=== PATIENT | male | born 1990 | race Caucasian/White ===

== ENCOUNTER 2025-01-30 10:16 | Outpatient (CLI) | payer BC, SELFPAY ==
--- OUTSIDE RECORDS SUMMARY | 2021-02-19 10:00 | XMS_ITS | Encounter Summary ---
[facility] Address [address] [id number] Care Team Providers Care Dining Room Cashier Name Role Phone July Frey DO Primary Care Provider Reason for Referral * Hospital - Outpatient (Routine) - Closed Specialty Diagnoses / Procedures Referred By Kaylen conway Referred To Contact Sleep Medicine Diagnoses Snoring Obstructive sleep apnea, adult Procedures Home Sleep Study Cory Tovar MD [address] [id number] Phone: tel: fax: [facility] [address] [address] Phone: tel: fax: Referral ID Status Reason Start Date Expiration Date Visits Re quested Visits Authorized [id number] Closed 01/30/2021 03/30/2021 1 1 Reason for Visit * Hospital - Outpatient (Routine) - Closed Specialty Diagnoses / Procedures Referred By Kaylen conway Referred To Contact Sleep Medicine Diagnoses Snoring Obstructive sleep apnea, adult Procedures Home Sleep Study Cory Tovar MD [address] [address], [address] [address] Phone: tel: fax: [facility] [address] [place] [address] Phone: tel: fax: Referral ID Status Reason Start Date Expiration Date Visits Re quested Visits Authorized [id number] Closed 01/30/2021 03/30/2021 1 1 Encounter Details Date Type Department Care Team (Latest Contact Info) Description 02/19/2021 10:00 AM EST Hospital Encounter [facility] [address] [facility] [address] [place] [id number] Cory Tovar MD [address] [facility] 1, [address] [place] [address] Snoring; Obstructive sleep apnea, adult Social History Tobacco Use Types Packs/Day Years Used Date Smoking Tobacco: Never Smokeless Tobacco: Never Alcohol Use Standard Drinks/Week Comments Yes 2 (1 standard drink = 0.6 oz pur e alcohol) social PHQ-2 Answer Date Recorded Retired PHQ-9: Brief Depression Severity Measure Score 8 07/14/2022 PHQ-2 Answer Date Recorded Patient Health Questionnaire-2 Score 0 08/01/2024 Sex and Gender Information Value Date Recorded Sex Assigned at Male 07/31/2024 11:45 AM EDT Legal Sex Male 12:01 PM EDT Gender Identity Not on file Sexual Orientation Not on file documented as of this encounter Last Filed Vital Signs Vital Sign Reading Time Taken Comments Blood Pressure - - Pulse - - Temperature - - Respiratory Rate - - Oxygen Saturation - - Inhaled Oxygen Concentration - - Weight 105 kg (231 lb) 02/19/2021 11:04 AM EST Height 182.9 cm (6') 02/19/2021 11:04 AM EST Body Mass Index 31.33 02/19/2021 11:04 AM EST documented in this encounter Functional Status documented as of this encounter Plan of Treatment Upcoming Encounters Date Type Department Care Team (Late st Contact Info) Description 02/06/2025 3:45 PM EST Office Visit [facility] [address] [place] [address] July Frey DO [address] [place] [address] 08/05/2025 4:00 PM EDT Office Visit [facility] [address], [place] [phone] July Frey DO [address], [place] [id number] documented as of this encounter Procedures Procedure Name Priority Date/Time Associated Diagnosis Comments WATCHPAT Routine 02/22/2021 5:51 AM EST Snoring Obstructive sleep apnea, adult documented in this encounter Results * WATCHPAT (02/22/2021 5:51 AM EST) Narrative Cory Tovar MD - 03/10/2021 9:16 AM EST Home sleep apnea test with WatchPat device report Patient Name: Alfredo Corrigan Interpreting Physician: Cory Tovar MD Date of : 1990 Referring Physician: Dr. Frey Primary Care Physician: July Frey DO Date of Study: 02/21/2021 Clinical Information Patient is a 30 y.o. male. Is seen for snoring and nonrestorative's. He has had central apneas noted in the past year. He awakens frequently at night. He has a morning headache 4 days/week. He has had hypertension noted in the past months. Blood pressure is 153/76 pulse 88 respirations 18 body mass index 31.36 Patient presents with an [place] Sleepiness Scale of 16/24 Methods used for Home Sleep Testing: Patient had a home sleep test using an WatchPat device that uses peripheral arterial tone to measure arterial volume changes at the fingertip showing sympathetic nervous system activation. Sleep stages are determined based on signal characteristics and built in actigraphy can help determine sleep/wake periods. Both signal attenuation and pulse rate determine arousals correlating with respiratory events, and the pulse oximeter sensor determines blood oxygen saturations. Snoring and body position is determined through an intergrated sensor measuring decibals and actigraphy. Raw study data was reviewed on an epoch by hypopneas Home sleep apnea test results Diagnostic Summary TOTAL RECORDING TIME: Total Recording Time (TIB) (min): 440 minutes TOTAL SLEEP TIME: Total Sleep Time (TST)(min): 339 minutes SLEEP LATENCY: Sleep Latency (min): 36 STAGE R. LATENCY: Stage R Latency (min): 58 min SLEEP EFFICIENCY: Sleep Efficiency (%): 77.12 % STAGE R % TST 12.2 He has minimally decreased sleep efficiency and decrease REM sleep Respiratory Data pAHI: AHI: 12.4 pRDI: RDI (if applicable): 19.9 This is consistent with mild obstructive sleep apnea. He had scattered snoring. Cardiac AVG HR DURING SLEEP Avg HR During Sleep: 69 bpm HIGHEST HR DURING SLEEP Highest HR During Sleep: 122 bpm Oximetry MIN SPO2 Min SpO2: 85 % O2 SATURATION, MEAN VALUE Arterial Oxygen Saturation, Mean Value (%): 94 % Diagnostic Respiratory Index Summary by Body Position He showed significant positional effect with a severe index in the supine position Supine pAHI, TOTAL AHI, TOTAL : 42.4 pRDI, TOTAL RDI, TOTAL : 43.3 TST (min) TST (MIN) : 69.5 Duration (Min) No data recorded Left pAHI, TOTAL AHI, TOTAL : 5.1 pRDI, TOTAL RDI, TOTAL : 16 TST (min) TST (min) : 166 Duration (Min) No data recorded Right pAHI, TOTAL AHI, TOTAL : 4 pRDI, TOTAL RDI, TOTAL: 10.4 TST (min) TST (min) : 104.2 Duration (Min) No data recorded Prone AHI, TOTAL No data recorded RDI, TOTAL No data recorded TST (min) No data recorded Duration (Min) No data recorded Impression: mild obstructive apnea, significant positional effect, decreased REM sleep and Mild decreased sleep efficiency Plan: would consider trial of CPAP such as AutoSet with an 8 cm minimum an 18 cm maximum , would encourage weight loss , would encourage the patient to avoid alcohol and sedatives close to bedtime , would encourage lateral position sleep , could consider oral appliance therapy and could consider surgical options Follow-up: He is to follow-up in sleep clinic and follow-up with Dr. Tk Tovar MD [facility] Sleep Medicine Pulmonary and Critical Care Medicine Electronically signed by: Cory Tovar MD 03/10/21 09:10 EST Cory Tovar MD [facility]EP [facility]ENTER ORDERABLES Final Re sult documented in this encounter Visit Diagnoses Diagnosis Snoring Other dyspnea and respiratory abnormality Obstructive sleep apnea, adult documented in this encounter Care Teams Dining Room Cashier Relationship Specialty Start Date End Date July Frey DO [address] [place] [address] PCP - General Family Medicine 11/14/20 documented as of this encounter
[2025-01-30 20:11] LABS: Coronavirus 19, PCR Not Detected (NotDetected); Influenza A, PCR Not Detected (NotDetected); Influenza B, PCR Not Detected (NotDetected)
--- OUTSIDE RECORDS SUMMARY | 2025-02-04 10:55 | XMS_ITS | Encounter Summary ---
Author Organization [facility] Address [address] [place] [address] Phone [email or web address] Care Team Providers Care Embossing Machine Operator Helper Name Role Phone Unavailable Primary Care Provider Unavailabl e Encounter Details Date Type Department Care Team (Late st Contact Info) Description 01/10/[address] [place] [address] Paola Lacey, RN [address] [place] [address] Social History Tobacco Use Types Packs/Day Years Used Date Smoking Tobacco: Never Smokeless Tobacco: Never Intimate Partner Violence Answer Date R ecorded Insults You Not on file 06/15/2020 Threatens You Not on file 06/15/2020 Screams at You Not on file 06/15/2020 Physically Hurt Not on file 06/15/2020 Intimate Partner Violence Score Not on file 06/15/2020 Depression Answer Date Recorded PHQ Total Score 0 03/10/2023 Stress Answer Date Recorded Stress in your Life Not on file 01/08/2024 Dealing with Stress 3 01/08/2024 Sex and Gender Information Value Date Recorded Sex Assigned at Not on file Legal Sex Male 8:38 AM CDT Gender Identity Not on file Sexual Orientation Not on file documented as of this encounter Progress Notes * Paola Lacey RN - 01/10/2025 12:17 PM EST Images from the original note were not included. See below e-mail with approval for specialist visit from WC adjustor, referral already closed sinceappointment was made with claim# from [facility]SI report. NOAM RN Work comp claim #: [id number] Thanks! Kalpana Soler Insulator Tester P: [phone] F: [phone] E: [email or web address] A: [address] [place] [address] RIMENTAL PREFLIGHT MECHANIC documented in this encounter Plan of Treatment Upcoming Encounters Date Type Department Care Team (Late st Contact Info) Description 02/04/2025 11:30 AM EST Occ Office Visit [facility] [address] [place] [address] Sherrie Bass, ILA [address] [place] [phone] 02/05/2025 1:00 PM EST Occ Treatment [facility] [address] [place] [address] Sheila Benitez, OT [address] [place] [address] 02/07/2025 1:00 PM EST Occ Treatment [facility] [address] [place] [address] Sheila Benitez, OT [address] [place] [address] documented as of this encounter Visit Diagnoses Not on filedocumented in this encounter
--- OUTSIDE RECORDS SUMMARY | 2025-02-04 10:55 | XMS_ITS | Clinical Summary ---
[facility] [address] [place] [address] Care Team Providers Care Food And Drug Inspector Name Role Phone July Frey Primary Care Provider [phone] Allergies No known active allergies Medications Testosterone Compounding Kit 20 % cream Apply 1 Application topically to the appropriate area as directed Daily. 4 Active tadalafil (CIALIS) 5 MG tablet Take 1 tablet by mouth Daily As Needed for Erectile Dysfunction. Active valACYclovir (VALTREX) 500 MG tablet Take 1 tablet by mouth Daily. 90 tablet 5 Active losartan-hydroch lorothiazide (HYZAAR) 100-25 MG per tabletIndication s:Essential hypertension Take 1 tablet by mouth Daily. 90 tablet 3 5 Active omeprazole (priLOSEC) 40 MG capsuleIndicatio ns:Gastroesophag eal reflux disease without esophagitis Take 1 capsule by mouth 2 (Two) Times a Day Before Meals. Take a half hour before breakfast 180 capsule 1 5 Active Active Problems Problem Noted Date Diagnosed Date Obstructive sleep apnea, adult 02/23/2021 Low testosterone 05/30/2020 Assessment & Plan (05/30/2020 6:27 PM EDT): Will obtain second testosterone reading. Advised that insurance typically requires 2 readings of low testosterone before approving therapy. We will plan to do testosterone injections. Patient wishes to do injections at home. Elevated hemoglobin 05/30/2020 Assessment & Plan (05/30/2020 6:28 PM EDT): Normalized. Further work-up to rule out various causes of polycythemia have been all normal as well. Urinary tract infection without hematuria 2020 Assessment & Plan (04/15/2020 6:34 AM EST): Trace leukocytes on UA. Will go ahead and treat with doxycycline for suspected UTI. Will send urine for culture. Urine also being tested for STDs. Essential hypertension 04/14/2020 Assessment & Plan (05/30/2020 6:27 PM EDT): Controlled on current medication. Patient has been encouraged to check his blood pressure couple times a week to ensure that it is not decreasing too low. Advised with continued weight loss, he may be able to come off of lisinopril. Assessment & Plan (04/15/2020 6:33 AM EST): BP remains elevated today. Will start losartan. Discussed potential side effects of the medication. Dysuria 04/14/2020 Elevated blood pressure, situational 01/25/2020 Assessment & Plan (01/25/2020 6:13 PM EST): Likely secondary to increased anxiety. Will avoid placing patient on antihypertensives at this time. Psychophysiological insomnia 07/24/2019 Assessment & Plan (07/24/2019 4:19 PM EDT): Secondary to uncontrolled anxiety and depression. Will start trazodone prn. Advised this is not something he will routinely have to take. Seasonal allergic rhinitis due to pollen 019 Assessment & Plan (08/18/2018 5:45 PM EDT): Improved. Continue Xyzal. Assessment & Plan (07/11/2018 1:18 PM EDT): Uncontrolled. Will start xyzal. Anxiety and depression 07/11/2018 Assessment & Plan (07/24/2019 4:19 PM EDT): Uncontrolled. Situational. Will start back on wellbutrin since the patient has done well with it before. Advised it may take a few weeks to take affect. He will also start counseling, which he has already set up. Assessment & Plan (01/10/2019 1:36 PM EST): Uncontrolled. Patient is being started back on Wellbutrin. Paperwork is also been filled [place] for [place] for work. Assessment & Plan (08/18/2018 5:46 PM EDT): Uncontrolled. Will start wellbutrin due to sexual side effects with zoloft. Advised of potential side effects. Assessment & Plan (07/11/2018 1:18 PM EDT): Uncontrolled. Continue counseling. Will start zoloft. Advised of potential side effects. Intermittent FMLA papers have been filled out today. Gastroesophageal reflux disease 07/11/2018 Assessment & Plan (08/18/2018 5:45 PM EDT): Improved without medication. Patient states will do H.pylori breath test today. Assessment & Plan (07/11/2018 1:17 PM EDT): Improved with prilosec. However, there is concern for possible H. Pylori. Patient to avoid acid reducers for 2 weeks and then do breath test. Resolved Problems Problem Noted Date Diagnosed Date Resolved Date Penile rash 03/12/2020 04/15/2020 Assessment & Plan (03/12/2020 3:49 PM EST): Unresolved with this last round of Diflucan. Patient is not having any discomfort from the rash currently, but it is still present. Discussed that the rash may not be fungal in nature. Will refer to dermatology for further evaluation and treatment. Penile lesion 01/25/2020 04/15/2020 Assessment & Plan (01/25/2020 6:12 PM EST): Highly suspected to be genital herpes outbreak. Patient is being treated with Valtrex. Penile swab was done in office today and sent for further STD testing. Patient highly encouraged to wear condoms to prevent further STDs. Localized abrasion of teeth 07/25/2013 04/15/2020 Overview (01/10/2019): Overview: Other sprain and strain of wrist 07/24/2013 04/15/2020 Overview (01/10/2019): Overview: Encounters Date Type Department Care Team Description 11/05/2024 Results Follow-Up [facility] [address] [place], [place] [address] July Frey DO from Last 3 Months Immunizations Immunization Administration Dates Next Due COVID-19 (MODERNA) 1st,2nd,3 rd Dose Monovalent 12/30/2020 Hep B, Adolescent or Pediatric 10/27/2000,2000,04/27/2000 Hpv9 04/14/2020 MMR 04/27/2000 Td (TDVAX) 12/11/2003 Tdap 05/09/2017,07/24/2013 Family History Medical History Relation Name Comments Hypertension Brother Glendale Corrigan Cancer Father [facility] lung and esopha geal Cancer Maternal Grandfather Darlene Peng mets Cancer Maternal Grandmother Caridad Peng lung Sleep apnea Mother [facility] Diabetes Paternal Grandfather [facility] Relation Name Status Comments Brother Gagandeep Corrigan Alive Father [facility] Maternal Grandfather Darlene Peng Maternal Grandmother Caridad Peng Mother [facility] Alive Paternal Grandfather [facility] Social History Tobacco Use Types Packs/Day Years Used Date Smoking Tobacco: Never Smokeless Tobacco: Never Tobacco Cessation:Counseling Given: Not Answered Alcohol Use Standard Drinks/Week Comments Yes 2 [...] on file Sexual Orientation Not on file Last Filed Vital Signs Vital Sign Reading Time Taken Comments Blood Pressure 138/64 08/01/2024 3:58 PM EDT Pulse 62 08/01/2024 3:58 PM EDT Temperature 36.4 C (97.5 F) 08/01/2024 3:58 PM EDT Respiratory Rate 16 08/01/2024 3:58 PM EDT Oxygen Saturation 99% 08/01/2024 3:58 PM EDT Inhaled Oxygen Concentration - - Weight 106 kg (234 lb 3.2 oz) 08/01/2024 3:58 PM EDT Height 185.4 cm (6' 1 ) 08/01/2024 3:58 PM EDT Body Mass Index 30.9 08/01/2024 3:58 PM EDT Plan of Treatment Upcoming Encounters Date Type Department Care Team (Late st Contact Info) Description 02/06/2025 3:45 PM EST Office Visit [facility] [address] [place] [phone] July Frey DO [address] [place] [address] 08/05/2025 4:00 PM EDT Office Visit [facility] [address] [place] [address] July Frey DO [address] [place] [address] Health Maintenance Due Date Last Done Comments INFLUENZA VACCINE 10/05/2024 01/10/2019 (Declined) ANNUAL PHYSICAL 08/01/2025 08/01/2024 TDAP/TD VACCINES (4 - Td or Tdap) 05/10/2027 05/09/2017, 07/24/2013, 12/11/2003 HEPATITIS C SCREENING Completed 12/06/2019 Pneumococcal Vaccine 0-49 Aged Out No longer eligible based on patient's age to complete this topic Procedures Procedure Name Priority Date/Time Associated Diagnosis Comments SCANNED - LABS 01/15/2025 HEPATITIS C ANTIBODY Routine 12/06/2019 4:19 PM EDT Potential exposure to STD from Last 3 Months or Most Recently Relevant to Health Maintenance Results * LABS SCANNED (01/15/2025) July Frey DO LAB BLOOD ORDERABLES Final Result * Hepatitis C Antibody (12/06/2019 4:19 PM EDT) Hep C Virus Ab <0.1 0.0 - 0.9 s/co ratio [facility] Comment: Negative: < 0.8 Indeterminate: 0.8 - 0.9 Positive: > 0.9 The CDC recommends that a positive HCV antibody result be followed up with a HCV Nucleic Acid Amplification test (008887). Blood 12/06/2019 4:19 PM EDT 12/06/2019 Narrative [facility] (AMBULATORY) - 12/07/2019 7:08 AM EDT Performed at: [address] [place] [id number] Train Inspector: Rajesh Reddy PhD, Phone: [phone] Patient Fasting: N Saima Shipley DO LAB BLOOD ORDERABLES Fin al Result [facility] ([facility]UL[facility]) [address] [place] [address], [facility] [address] [place] [address], [place] [phone] from Last 3 Months or Most Recently Relevant to Health Maintenance Insurance [employer] [facility] PPO Care Teams Food And Drug Inspector Relationship Specialty Start Date End Date July Frey DO [address] [place] [address] PCP - General Family Medicine 11/14/20
--- OUTSIDE RECORDS SUMMARY | 2025-02-04 10:55 | XMS_ITS | Clinical Summary ---
Author Organization Healthcare Address [address] [place] [address] Care Team Providers Care Coal Weigher Name Role Phone July Frey DO Primary Care Provider [phone] Allergies No known active allergies Medications omeprazole (PriLOSEC) [address] capsule TAKE 1 CAPSULE BY MOUTH TWICE DAILY BEFORE MEALS, TAKE A HALF HOUR BEFORE BREAKFAST 5 Active losartan-hydroCH LOROthiazide (Hyzaar) 100-25 MG tablet Take 1 tablet by mouth daily. 5 Active famotidine (Pepcid) 20 MG tablet TAKE 1 TABLET BY MOUTH TWICE DAILY NEEDED FOR HEART Active Cetirizine HCl 10 MG capsule 2 Active TESTOSTERONE COMPOUNDING KIT TD 4 Active Active Problems No known active problems Family History Medical History Relation Name Comments Diabetes Brother Mike corrigan Cancer Father Gagandeep corrigan Conversions - Other Mother Healthy adult Relation Name Status Comments Brother Mike corrigan Father Gagandeep [place] Mother Social History Tobacco Use Types Packs/Day Years Used Date Smoking Tobacco: Never Smokeless Tobacco: Never Tobacco Cessation:Counseling Given: Not Answered Alcohol Use Standard Drinks/Week Comments Yes 5 (1 standard drink = 0.6 oz pure alcohol) Alcoholic Drinks/day: Social alcohol use Sex and Gender Information Value Date Recorded Sex Assigned at Male 06/24/2023 7:36 AM EDT Legal Sex Male 6:12 PM EDT Gender Identity Not on file Sexual Orientation Not on file Last Filed Vital Signs Vital Sign Reading Time Taken Comments Blood Pressure 130/82 11/01/2024 3:34 PM EDT Pulse 81 11/01/2024 3:34 PM EDT Temperature 36.7 C (98 F) 11/01/2024 3:34 PM EDT Respiratory Rate - - Oxygen Saturation 98% 11/01/2024 3:34 PM EDT Inhaled Oxygen Concentration - - Weight 102 kg (225 lb) 11/01/2024 3:34 PM EDT Height 185.4 cm (6' 1 ) 11/01/2024 3:34 PM EDT Body Mass Index 29.69 11/01/2024 3:34 PM EDT Plan of Treatment Upcoming Encounters Date Type Department Care Team (Late st Contact Info) Description 03/21/2025 4:00 PM EST Office Visit Professional Our Security Team [facility] [address], [address] [place] [address] Health Maintenance Due Date Last Done Comments Dental Oral Exam 1989 Dental Prophylaxis 1989 Dental X-Ray: Bitewings 1989 Dental X-Ray: Full Mouth 1989 [facility]-Depression Screening 1989 [facility]-HIV Screening 1989 [facility]-/Child/Adol SDOH Screenings 1989 [facility]-Varicella Vaccines (1 of 2 - 13+ 2-dose series) 2002 [facility]- SDOH Screenings 06/19/2007 [facility]-Adult SDOH Screenings 06/19/2007 HPV Vaccines (2 - 3-dose SCDM series) 05/12/2020 04/14/2020 [id number] Vaccine (2 - 2024- season) 2024 12/30/2020 [facility]-Influenza Vaccine (#1) 2024 [facility]-DTaP,Tdap,and Td Vaccines (4 - Td or Tdap) 05/10/2027 05/09/2017, 07/24/2013, 12/11/2003 [facility]-Zoster Vaccines (1 of 2) 06/19/2039 [facility]-Hepatitis B Vaccines Completed 001, 05/30/2000, 04/27/2000 [facility]-Hepatitis C Screening Completed 12/06/2019 [facility]-Obesity Intervention Completed 025, 11/16/2023, 10/26/2023, Additional history exists [facility]-HIB Vaccines Aged Out No longer e ligible based on patient's age to complete this topic [facility]-Hepatitis A Vaccines Aged Out No longer eligible based on patient's age to complete this topic [facility]-IPV Vaccines Aged Out No longer e ligible based on patient's age to complete this topic [facility]-Pneumococcal Vaccine: Pediatrics (0 to 5 Years) and At-Risk Patients (6 to 49 Years) Aged Out No longer eligible based on patient's age to complete this topic [facility]-Rotavirus Vaccines Aged Out No lo nger eligible based on patient's age to complete this topic Insurance [employer] Care Teams Coal Weigher Relationship Specialty Start Date End Date July Frey DO PCP - General 10/26/23
--- OUTSIDE RECORDS SUMMARY | 2025-02-04 10:55 | XMS_ITS | Encounter Summary ---
Author Organization [facility] Address [address] [place] [address] Care Team Providers Care Glue Clamp Operator Name Role Phone July Frey DO Primary Care Provider [phone] Reason for Referral * Consultation (Routine) - Closed Specialty Diagnoses / Procedures Referred By Kaylen conway Referred To Contact Nephrology Diagnoses Decreased renal function Procedures WI OFFICE/OUTPATIENT NEW MODERATE MDM 45 MINUTES July Frey DO [address] [place] [address] Phone: tel: fax: Patrizia Borrego MD [facility] [place] [address] Phone: tel: fax: Referral ID Status Reason Start Date Expiration Date V isits Requested Visits Authorized [id number] Closed Specialty Services Required 10/02/2024 01/01/2026 1 1 * Diagnostic Imaging (Routine) - Closed Specialty Diagnoses / Procedures Referred By Kaylen conway Referred To Contact Radiology Diagnoses Decreased renal function Procedures US Renal Bilateral July Frey DO [address] [place] [address] Phone: tel: fax: [facility] [address] [place] [address] Phone: tel: Referral ID Status Reason Start Date Expiration Date Visits Re quested Visits Authorized [id number] Closed 10/02/2024 01/01/2026 1 1 Encounter Details Date Type Department Care Team (Late st Contact Info) Description 10/02/2024 Results Follow-Up [facility] [address] [place] [address] July Frey DO [address] [place] [address] Social History Tobacco Use Types Packs/Day Years [...] on file documented as of this encounter Plan of Treatment Upcoming Encounters Date Type Department Care Team (Late st Contact Info) Description 02/06/2025 3:45 PM EST Office Visit [facility] [address] [place] [address] July Frey DO [address] [place] [address] 08/05/2025 4:00 PM EDT Office Visit [facility] [address] [place] [address] July Frey DO [address] [place] [id number] Scheduled Referrals Name Type Priority Associated Diagnoses Order Schedule Ambulatory Referral to Nephrology Outpatient Referral Routine Decreased renal function Ordered: 10/02/2024 documented as of this encounter Results * US Renal Bilateral (10/29/2024 3:27 PM EDT) Anatomical Region Laterality Modality Body, Abdomen Ultrasound 11/01/2024 9:22 PM EDT Impressions 11/01/2024 9:23 PM EDT Impression: Unremarkable renal ultrasound. Electronically Signed: Paola De La Vega MD 11/01/2024 9:23 PM EDT Workstation ID: [id number] Narrative 11/01/2024 9:23 PM EDT US RENAL BILATERAL Date of Exam: 10/29/2024 3:06 PM EDT Indication: decreased renal function. Comparison: No comparisons available. Technique: Grayscale and color Doppler ultrasound evaluation of the kidneys and urinary bladder was performed. Findings: RIGHT kidney measures 9.6 x 5.9 x 5.1 cm. Kidney echogenicity, size, and vascularity appear within normal limits. There is no solid kidney mass. No echogenic shadowing stone. No hydronephrosis. LEFT kidney measures 10.1 x 6.4 x 6 cm. Kidney echogenicity, size, and vascularity appear within normal limits. There is no solid kidney mass. No echogenic shadowing stone. No hydronephrosis. Limited visualization of the urinary bladder is unremarkable. Procedure Note Paola De La Vega MD - 11/01/2024 US RENAL BILATERAL Date of Exam: 10/29/2024 3:06 PM EDT Indication: decreased renal function. Comparison: No comparisons available. Technique: Grayscale and color Doppler ultrasound evaluation of thekidneys and urinary bladder was performed. Findings: RIGHT kidney measures 9.6 x 5.9 x 5.1 cm. Kidney echogenicity, size, andvascularity appear within normal limits. There is no solid kidney mass.No echogenic shadowing stone. No hydronephrosis. LEFT kidney measures 10.1 x 6.4 x 6 cm. Kidney echogenicity, size, andvascularity appear within normal limits. There is no solid kidney mass.No echogenic shadowing stone. No hydronephrosis. Limited visualization of the urinary bladder is unremarkable. IMPRESSION: Impression: Unremarkable renal ultrasound. Electronically Signed: Paola De La Vega MD 11/01/2024 9:23 PM EDT Workstation ID: [id number] us July Frey DO IMG US ORDERABLES Final Res ult documented in this encounter Visit Diagnoses Diagnosis Decreased renal function- Primary Decreased renal function documented in this encounter Care Teams Glue Clamp Operator Relationship Specialty Start Date End Date July Frey DO [address] [facility] [place] [address] PCP - General Family Medicine 11/14/20 documented as of this encounter
--- OUTSIDE RECORDS SUMMARY | 2025-02-04 10:55 | XMS_ITS | Encounter Summary ---
Author Organization [facility] Address [address] [place] [id number] Care Team Providers Care Surveying Crew Stake Runner Name Role Phone July Frey DO Primary Care Provider [phone] Reason for Visit * Reason Onset Date Comments Med Refill 02/09/2023 Encounter Details Date Type Department Care Team (Late st Contact Info) Description 02/09/[address] [facility] [address] [place] [address] July Frey DO [address] [place] [address] Social History Tobacco Use Types Packs/Day Years Used Date Smoking Tobacco: Never Smokeless Tobacco: Never Alcohol Use Standard Drinks/Week Comments Yes 2 (1 standard drink = 0.6 oz pur e alcohol) social PHQ-2 Answer Date Recorded Retired PHQ-9: Brief Depression Severity Measure Score 8 07/14/2022 PHQ-2 Answer Date Recorded Retired PHQ-9: Brief Depression Severity Measure Score 8 07/14/2022 Sex and Gender Information Value Date Recorded Sex Assigned at Male 07/31/2024 11:45 AM EDT Legal Sex Male 12:01 PM EDT Gender Identity Not on file Sexual Orientation Not on file documented as of this encounter Plan of Treatment Upcoming Encounters Date Type Department Care Team (Late st Contact Info) Description 02/06/2025 3:45 PM EST Office Visit [facility] [address] [place], [place] [address] July Frey DO [address] [place] [address] 08/05/2025 4:00 PM EDT Office Visit [facility] [address] [place] [address] July Frey DO [address] [place] [address] documented as of this encounter Visit Diagnoses Not on filedocumented in this encounter Additional Health Concerns Assessment Noted Time PHQ-2 Depression Total Score: 2 07/15/19 23 3:42 PM EDT documented as of this encounter Care Teams Surveying Crew Stake Runner Relationship Specialty Start Date End Date July Frey DO [address] [place] [address] PCP - General Family Medicine 11/14/20 documented as of this encounter
--- OUTSIDE RECORDS SUMMARY | 2025-02-04 10:55 | XMS_ITS | Encounter Summary ---
Author Organization [facility] Address [address] [place] [id number] Care Team Providers Care Sheet Metal Layout Mechanic Name Role Phone July Frey DO Primary Care Provider [phone] Encounter Details Date Type Department Care Team (Late st Contact Info) Description 11/05/2024 Results Follow-Up [facility] [address] [address] July Frey DO [address] [address] Social History Tobacco Use Types Packs/Day [...] Description 02/06/2025 3:45 PM EST Office Visit [facility] [address] [place] [address] July Frey DO [address] [place], [place] [address] 08/05/2025 4:00 PM EDT Office Visit [facility] [address] [place] [address] July Frey DO [address] [place] [address] documented as of this encounter Visit Diagnoses Not on filedocumented in this encounter Care Teams Sheet Metal Layout Mechanic Relationship Specialty Start Date End Date July Frey DO [address] [place] [address] PCP - General Family Medicine 11/14/20 documented as of this encounter
--- OUTSIDE RECORDS SUMMARY | 2025-02-04 10:55 | XMS_ITS | Clinical Summary ---
Author Organization [facility] Address [address] [place] [address] Phone [email or web address] Care Team Providers Care Matrix Drier Tender Name Role Phone Unavailable Primary Care Provider Unavailabl e Allergies No known active allergies Medications losartan-hydroC HLOROthiazide (HYZAAR) 100-25 MG per tablet Take 1 tablet by mouth once daily as needed. 3 Active omeprazole (PriLOSEC) [address] capsule TAKE 1 CAPSULE BY MOUTH TWICE DAILY BEFORE MEALS, TAKE A HALF HOUR BEFORE BREAKFAST Active predniSONE 10 MG (21) tablet therapy pack 4 Active amoxicillin (AMOXIL) 500 MG tablet 5 Active predniSONE 5 MG (21) tablet therapy pack 5 Active Active Problems Problem Noted Date Diagnosed Date Encounter for hearing examination without abnorm al findings 07/21/2022 Overview (07/21/2022): Annual hearing test Penile rash 03/12/2020 Overview (03/18/2020): Last Assessment & Plan: Unresolved with this last round of Diflucan. Patient is not having any discomfort from the rash currently, but it is still present. Discussed that the rash may not be fungal in nature. Will refer to dermatology for further evaluation and treatment. Elevated blood pressure, situational 01/25/2020 Overview (03/18/2020): Last Assessment & Plan: Likely secondary to increased anxiety. Will avoid placing patient on antihypertensives at this time. Penile lesion 01/25/2020 Overview (03/18/2020): Last Assessment & Plan: Highly suspected to be genital herpes outbreak. Patient is being treated with Valtrex. Penile swab was done in office today and sent for further STD testing. Patient highly encouraged to wear condoms to prevent further STDs. Psychophysiological insomnia 07/24/2019 Overview (11/05/2019): Last Assessment & Plan: Secondary to uncontrolled anxiety and depression. Will start trazodone prn. Advised this is not something he will routinely have to take. Seasonal allergic rhinitis due to pollen 019 Overview (11/05/2019): Last Assessment & Plan: Improved. Continue Xyzal. Gastroesophageal reflux disease 07/11/2018 Overview (11/05/2019): Last Assessment & Plan: Improved without medication. Patient states will do H.pylori breath test today. Anxiety and depression 07/11/2018 Overview (11/05/2019): Last Assessment & Plan: Uncontrolled. Situational. Will start back on wellbutrin since the patient has done well with it before. Advised it may take a few weeks to take affect. He will also start counseling, which he has already set up. Resolved Problems Problem Noted Date Diagnosed Date Resolved Date Abrasion of teeth, localized 07/25/2013 11/05/2019 Overview (08/03/2017): Other sprain and strain of wrist 07/24/2013 11/05/2019 Overview (08/03/2017): Encounters Date Type Department Care Team Description 01/10/2025 Documentation [facility] [address] [place] [address] Paola Lacey RN from Last 3 Months Immunizations Immunization Administration Dates Next Due Tdap (ADACEL BOOSTRIX) (CVX-[id number]) 07/24/2013 Social History Tobacco Use Types Packs/Day Years Used Date Smoking Tobacco: Never Smokeless Tobacco: Never Tobacco Cessation:Counseling Given: Not Answered Intimate Partner Violence Answer Date R ecorded [...] Sign Reading Time Taken Comments Blood Pressure 151/82 01/18/2025 12:51 PM EST Pulse 71 01/18/2025 12:51 PM EST Temperature 36.9 C (98.4 F) 12/27/2024 3:18 PM EDT Respiratory Rate 16 01/18/2025 12:51 PM EST Oxygen Saturation 95% 01/18/2025 12:51 PM EST Inhaled Oxygen Concentration - - Weight 110 kg (242 lb 6.4 oz) 12/27/2024 3:18 PM EDT Height 185.4 cm (6' 1 ) 12/27/2024 3:18 PM EDT Body Mass Index 31.98 12/27/2024 3:18 PM EDT Plan of Treatment Upcoming Encounters Date Type Department Care Team (Late st Contact Info) Description 02/04/2025 11:30 AM EST Occ Office Visit [facility] [address] [place] [address] Sherrie Bass PA [address] [place] [address] 02/05/2025 1:00 PM EST Occ Treatment [facility] [address] [place] [address] Sheila Benitez OT [address] [place] [address] 02/07/2025 1:00 PM EST Occ Treatment [facility] [address] [place] [address] Sheila Benitez, DEBRA [address] [place] [address] Health Maintenance Due Date Last Done Comments Dental Cleaning/Exam 1989 HIV Screening 1989 Hepatitis C Screening 1989 Annual Preventive Exam 06/19/2007 Hep B Infection Screening - Triple Screen 06/19/2007 HPV Immunization (2 - Male 3-dose series) 05/12/2020 04/14/2020 Covid-19 Immunization (2 - season) 2024 12/30/2020 Influenza Immunization (#1) 2024 Tetanus Diphtheria and Pertussis Immunization (4 - Td or Tdap) 05/10/2027 05/09/2017, 07/24/2013, 12/11/2003 Hepatitis B Immunization Completed 001, 05/30/2000, 04/27/2000 HIB Immunization Aged Out No longer e ligible based on patient's age to complete this topic Hepatitis A Immunization Aged Out No longer eligible based on patient's age to complete this topic Pneumococcal Immunization Aged Out No longer eligible based on patient's age to complete this topic Polio Immunization Aged Out No longer eligible based on patient's age to complete this topic Varicella Immunization Aged Out No lo nger eligible based on patient's age to complete this topic Insurance OPT OUT NO COPAY NB
== END 2025-01-30 23:59 ==
LOC: LAB.DROPOF 02-04 10:17
PROVIDERS: PCP Family Medicine; Visit Provider Nurse Practitioner
DX: J06.9 Acute upper respiratory infection, unspecified (principal); J02.9 Acute pharyngitis, unspecified
CPT/HCPCS: 87070; 87077; 87631